=== PATIENT | male | born 2000 | race Caucasian/White ===

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

== ENCOUNTER 2019-02-07 05:40 | Day surgery (SDC) | payer BC ==
[2019-02-07] VITALS (9 sets, daily range): BP systolic 103–147; BP diastolic 44–75; PULSE 66–81; RESP 13–18; Ht 175.3 cm; Wt 103.2 kg
[~2019-02-07] VITALS: Ht 175.3 cm; Wt 103.2 kg
[~2019-02-07 05:40] MED LIST changes: +ERYT250T55 PO; +ESOM20CA PO
[2019-02-07] MEDS ORDERED: LACTATED RINGER'S 1,000 ML IV SCH (06:00)
[2019-02-07] MEDS ORDERED: ONDANSETRON 4 MG INJ IV PRN (07:30)
[2019-02-07] MEDS ORDERED: HYDROmorphONE 1 MG/5 ML IV SYRINGE IV PRN ×3 (07:30)
[2019-02-07] MEDS ORDERED: DIPHENHYDRAMINE 50 MG INJ IV PRN (07:30)
[2019-02-07] MEDS ORDERED: ALBUTEROL 0.083% (NEB) 2.5 MG/3 ML AMP HHN PRN (07:30)
[2019-02-07] MEDS ORDERED: hydrALAzine 20 MG INJ IV PRN (07:30)
[2019-02-07] MEDS ORDERED: IPRATROPIUM (NEB) 0.5 MG/2.5 ML AMP HHN PRN (07:30)
[2019-02-07] MEDS ORDERED: EPHEDrine 25 MG/5 ML SYG IV PRN (07:30)
[2019-02-07] MEDS ORDERED: MEPERIDINE 25 MG INJ IV PRN (07:30)
[2019-02-07] MEDS ORDERED: LABETALOL HCL 20MG INJ IV PRN (07:30)
[2019-02-07] MEDS ORDERED: OXYCODONE/ACETAMINOPHEN (5/325) TAB PO PRN ×2 (07:30)
[2019-02-07] MEDS ORDERED: FENTAnyl 50 MCG/ML VIAL IV PRN ×3 (07:30)
[2019-02-07] MEDS ORDERED: MIDAZOLAM 1 MG/ML 2 ML INJ IV PRN (07:30)
[2019-02-07] MEDS ORDERED: TRIMETHOBENZAMIDE 100 MG/ML VIAL IM PRN (07:30)
[2019-02-07] MEDS ORDERED: PROPOFOL 200 MG INJ ONE (07:48)
[2019-02-07] MEDS ORDERED: LIDOCAINE 100 MG SYRINGE ONE (07:48)
[2019-02-07] MEDS ORDERED: PROPOFOL 20 ML ONE (07:48)
[2019-02-07] MEDS ORDERED: FENTAnyl 50 MCG/ML VIAL ONE (07:49)
== END 2019-02-07 09:08 | disposition home or self-care (01) ==
LOC: GIL 05:40 → SDS 05:40 → GIL 09:08
PROVIDERS: ATTEND Specialist
DX: K44.9 Diaphragmatic hernia without obstruction or gangrene (principal); K20.8 Other esophagitis; K29.80 Duodenitis without bleeding
CPT/HCPCS: 43239; 88305; J2001; J3010; Z7512; Z7610